=== PATIENT | female | born 1995 | race Hispanic/Latino ===

== ENCOUNTER 2022-02-21 17:46 | Emergency (ER) | payer MEDICAID ==
[~2022-02-21] VITALS: Ht 154.9 cm; Wt 102.5 kg
[~2022-02-21 17:46] MED LIST: ALBU1.252 IH; EPIN0.3P2 IM; LORA10CA PO
[2022-02-21] MEDS ORDERED: EPINEPHRINE PF 1MG (1:1,000) 1 MG/ML AMP ONE (18:21)
[2022-02-21] MEDS ORDERED: EPINEPHRINE PF 1MG (1:1,000) 1 MG/ML AMP SQ SCH (18:30)
[2022-02-21] MEDS ORDERED: 0.9%NACL 1000ML 1,000 ML IV ONE (18:30)
[2022-02-21] MEDS ORDERED: SOLU-MEDROL 125MG VIAL IVP ONE (18:30)
[2022-02-21] MEDS ORDERED: FAMOTIDINE 20MG VIAL IV ONE (18:30)
[2022-02-21] MEDS ORDERED: EPIN0.3P19 IJ (20:09)
[2022-02-21] MEDS ORDERED: DIPH25 PO (20:09)
[2022-02-21] MEDS ORDERED: PRED20TA3 PO (20:09)
[2022-02-21 20:42] VITALS: BP 102/55
== END 2022-02-21 20:50 | disposition home or self-care (01) ==
LOC: EDH 17:46
DX: T78.49XA Other allergy, initial encounter (principal); X58.XXXA Exposure to other specified factors, initial encounter; Z88.6 Allergy status to analgesic agent; Z79.52 Long term (current) use of systemic steroids
CPT/HCPCS: 99284; 96374; 96361; 96375; 96372; J7030; J2930; J0171; S0028; J3490

== ENCOUNTER 2023-11-17 15:18 | Emergency (ER) | payer MEDICAID, OTHER ==
[~2023-11-17] VITALS: Ht 154.9 cm; Wt 109.8 kg
[~2023-11-17 15:18] MED LIST changes: +DIPH-1242 PO; +EPIN0.3P19 IJ; +PRED20TA3 PO
[2023-11-17] MEDS: 0.9%NACL 1000ML 1,000 ML IV ONE (15:41)
[2023-11-17] MEDS: DiphenhydrAMINE HCL 50 MG/ML VIAL IV ONE (15:41)
[2023-11-17] MEDS: SOLU-MEDROL 125MG VIAL IVP ONE (15:41)
[2023-11-17 15:46] VITALS: BP 123/84; O2SAT 100
[2023-11-17 15:54] VITALS: PULSE 90; RESP 16
[2023-11-17] MEDS: ALBUTEROL 0.042% 1.25MG/3ML IH ONE (15:55)
[2023-11-17] MEDS: BUDESONIDE 0.5 MG/2 ML INH IH ONE (15:56)
[2023-11-17] MEDS: BUDESONIDE 0.5 MG/2 ML INH IH SCH (15:56)
[2023-11-17] MEDS ORDERED: ALBUHFA IH (16:31)
[2023-11-17] MEDS ORDERED: METH4TAB3 PO (16:31)
[2023-11-17] MEDS ORDERED: DIPH50 PO (16:31)
[2023-11-17] MEDS ORDERED: BUDESONIDE 0.5 MG/2 ML INH IH SCH (18:00)
== END 2023-11-17 16:53 | disposition home or self-care (01) ==
LOC: EDH 15:18
DX: T78.2XXA Anaphylactic shock, unspecified, initial encounter (principal); T78.3XXA Angioneurotic edema, initial encounter; J98.01 Acute bronchospasm; Z88.6 Allergy status to analgesic agent; Z91.010 Allergy to peanuts; Z79.899 Other long term (current) drug therapy
CPT/HCPCS: 99284; 96374; 96361; 94640; J1200; J7030; J2930

== ENCOUNTER 2024-10-06 15:53 | Emergency (ER) | payer BC ==
[~2024-10-06] VITALS: Ht 154.9 cm; Wt 112.5 kg
[~2024-10-06 15:53] MED LIST changes: +ALBUHFA IH; +DIPH50 PO; +METH4TAB3 PO
--- NOTE | 2024-10-06 16:48 | HMCIMG ---
ULTRASOUND ABDOMEN LIMITED INDICATION: Right upper abdominal pain COMPARISON: None FINDINGS: The liver is normal in size and increased in echogenicity; no focal lesion demonstrated. Main portal vein is patent, and normal direction of vascular flow demonstrated. The common bile duct diameter measures 2.0 mm. No evidence for calculi, sludge or pericholecystic fluid. No sonographic Perez's sign elicited by the ultrasound hydraulic press operator. Wall thickness measures 2.0 mm. Visible portions of the pancreas appear normal. The right kidney measures 12.1 x 4.6 x 5.3 cm,and is normal in echogenicity, without evidence for hydronephrosis.No shadowing stones demonstrated. No free fluid demonstrated. IMPRESSION: Findings suggesting hepatic steatosis or other underlying hepatocellular disease process.
[2024-10-06 17:04] LABS: BASOPHILS # (AUTO) 0.04 K/uL (0.00-0.20); BASOPHILS % (AUTO) 0.4 % (0.0-5.0); EOSINOPHILS % (AUTO) 0.9 % (0.0-8.0); HEMATOCRIT 38.8 % (36-48); IMMATURE GRANULOCYTE ABSOLUTE 0.05 K/uL (0-1); LYMPHOCYTES # (AUTO) 2.5 K/uL (1.0-4.8); LYMPHOCYTES % (AUTO) 21.8 % (21.0-51.0); MEAN CORPUSCULAR HEMOGLOBIN 26.4 pg (27.0-33.0); MEAN CORPUSCULAR HGB CONC 32.5 g/dL (32.0-36.0); MEAN CORPUSCULAR VOLUME 81.3 fL (79-99); MONOCYTES # (AUTO) 0.5 K/uL (0.1-1.0); MONOCYTES % (AUTO) 3.9 % (3.0-13.0); NEUTROPHILS # (AUTO) 8.3 K/uL (1.8-7.7); NEUTROPHILS % (AUTO) 72.6 % (40.0-77.0); PLATELET COUNT (AUTO) 333 K/uL (130-400); RED BLOOD CELL COUNT(AUTO) 4.77 MIL/uL (4.00-5.50); RED CELL DISTRIBUTION WIDTH 13.6 % (11.0-15.5); WHITE BLOOD COUNT (AUTO) 11.4 K/uL (4.8-10.8)
[2024-10-06 17:24] LABS: CREATININE 0.8 mg/dL (0.5-1.0)
[2024-10-06 17:29] LABS: ALBUMIN 3.8 g/dL (3.5-5.0); BILIRUBIN,DIRECT 0.1 mg/dL (0.0-0.3); BILIRUBIN,TOTAL 0.5 mg/dL (0.2-1.0); TOTAL PROTEIN, SERUM 8.3 g/dL (6.0-8.3)
[2024-10-06 17:34] LABS: APPEARANCE,URINE CLEAR (CLEAR); BILIRUBIN,URINE NEGATIVE (NEGATIVE); COLOR,URINE YELLOW (YELLOW); GLUCOSE, URINE (UA) NEGATIVE (NEGATIVE); KETONES,URINE 10 mg/dL (NEGATIVE); LEUKOCYTE ESTERASE ,URINE NEGATIVE Leu/uL (NEGATIVE); NITRATE,URINE NEGATIVE (NEGATIVE); OCCULT BLOOD,URINE NEGATIVE (NEGATIVE); PROTEIN,URINE 20 mg/dL (NEGATIVE)
[2024-10-06] MEDS: ondanSETRON 4MG INJ IVP STA (17:37)
[2024-10-06] MEDS: 0.9%NACL 1000ML 1,000 ML IV STA (17:37)
[2024-10-06 17:38] LABS: ADD UA MICROSCOPIC YES
[2024-10-06] MEDS: morPHINE 2 MG SYG IVP STA (17:38)
[2024-10-06 17:40] LABS: BACTERIA,URINE RARE /HPF (None Seen); MUCUS,URINE MANY LPF (None Seen); SQUAMOUS EPITHELIAL CELL,UR FEW /HPF (0-2)
[2024-10-06] MEDS ORDERED: ONDA-243 PO (18:42)
[2024-10-06] MEDS ORDERED: FAMO-136 PO (18:42)
--- NOTE | 2024-10-06 18:45 | ERN ---
ED Note History of Present Illness Stated Complaint: ABD PAIN Chief Complaint: Abdominal Pain Time Seen by MD: 15:57 Time Seen by Midlevel: 16:00 Dictation: 28-year-old with no past medical history coming in with complaints of epigastric pain for one week, worsening when she has a meal, patient states she has had also some emesis today times three, nonbloody and decreased appetite. LMP 09/18/2024. Denies any fever, diarrhea, chest pain or chest discomfort. Allergies: Coded Allergies: aspirin (Unverified Allergy, Unknown, 01/06/17) peanut (Unverified Allergy, Unknown, 01/06/17) Home Meds Active Scripts Diphenhydramine HCl (Benadryl) 50 Mg Cap, 50 MG PO Q6H for itching/rash, #20 CAP 0 Refills Prov:DEN CARLSON NP 11/17/23 Methylprednisolone (Medrol) 4 Mg Tab.ds.pk, 4 MG PO AD, #1 UNIT Prov:DEN CARLSON NP 11/17/23 Albuterol Sulfate (Ventolin Hfa/Proventil Hfa/Proair Hfa) 90 Mcg Puff, 2 PUFF IH Q4H for WHEEZING, #1 INHALER 0 Refills Prov:DEN CARLSON NP 11/17/23 Epinephrine (Epinephrine) 0.3 Mg/0.3 Ml Auto.injct, 0.3 MG IJ ONCE, #2 CARTRIDGE Prov:KANNAN CANTOR 02/21/22 Diphenhydramine HCl (Benadryl) 25 Mg Cap, 25 MG PO Q6HPRN PRN for ITCHING, #30 CAP Prov:KANNAN CANTOR 02/21/22 Prednisone (Prednisone) 20 Mg Tablet, 1 TAB PO AD for 6 Days, #14 TAB 0 Refills TAKE 1 TAB BY MOUTH THREE TIMES PER DAY X3 DAYS, THEN TAKE 1 TAB BY MOUTH TWICE A DAY X2 DAYS, THEN TAKE 1 TAB BY MOUTH ONCE A DAY X1 DAY. Prov:KANNAN CANTOR 02/21/22 Epinephrine (Epipen) 0.3 Mg/0.3 Ml Auto.injct, 0.3 MG IM as needed, #3 CARTRIDGE Prov:MOHSEN HUMMEL MD 01/07/17 Reported Medications Albuterol Sulfate (Albuterol Sulfate) 1.25 Mg/3 Ml Vial.neb, 1.25 MG IH BID PRN for SHORTNESS OF BREATH, INH 01/06/17 Loratadine (Claritin) 10 Mg Capsule, 10 MG PO AM, CAP 01/06/17 Past Medical History Past Medical History: No Pertinent History, Other Surgical History: None History: Not Applicable Review of System Dictation Constitutional: Negative for fever,chills, and weight loss Eyes: Negative for injury, pain,redness, and discharge ENT: Negative for injury,pain or swelling Cardiovascular: Negative for chest pain, palpitations, and edema Respiratory: Negative for shortness of breath, cough, and wheezing, Abdomen/GI: Epigastric pain is with nausea and vomiting no diarrhea, and no constipation Back: Negative for injury and pain : Negative for injury, bleeding and discharge MS/Extremity: Negative for injury and deformity Skin: Negative for rash, and discoloration Neuro: Negative for headache, weakness, numbness, tingling, and seizure Psych: Negative for suicide ideation, homicidal ideation, and hallucinations Review of Systems: was completed Initial Vital Sign VS Vital Signs Date Time Temp Pulse Resp B/P (MAP) Pulse Ox O2 Delivery O2 Flow Rate FiO2 10/06/24 15:56 99.5 113 18 164/87 95 Room Air 10/06/24 17:42 0 21 Physical Exam Dictation General: awake, alert, NAD Head/Face: Normocephalic, atraumatic Eyes: PERRL, EOMI, vision at baseline ENT: oral cavity clear, TMs clear, no signs of infection Neck: Trachea midline, supple, no nuchal rigidity Cardiovascular: RRR, normal S1/S2, No MRGs, no JVD Respiratory: CTAB, no respiratory distress, No rales or wheezes Abdomen: Soft, non-tender, non-distended, normal bowel sounds, no guarding or rebound. Skin: Warm, dry, normal turgor, no rash MS/Extremity: Pulses equal, no cyanosis, neurovascular intact, FROM Neuro: COAx4, GCS 15, strength 5/5, CN 2-12 intact, normal cerebellar exam, normal gait, Psych: Normal behavior, mood, and affect normal Results (Laboratory/Radiology) Laboratory/Radiology Laboratory Tests Test 10/06/24 16:59 10/06/24 17:09 White Blood Count 11.4 K/uL (4.8-10.8) H Red Blood Count 4.77 MIL/uL (4.00-5.50) Hemoglobin 12.6 g/dL (12.0-16.0) Hematocrit 38.8 % (36-48) Mean Corpuscular Volume 81.3 fL (79-99) Mean Corpuscular Hemoglobin 26.4 pg (27.0-33.0) L Mean Corpuscular Hemoglobin Concent 32.5 g/dL (32.0-36.0) Red Cell Distribution Width 13.6 % (11.0-15.5) Platelet Count 333 K/uL (130-400) Mean Platelet Volume 10.0 fL (7.5-10.5) Immature Granulocyte % (Auto) 0.4 % (0-1) Neutrophils (%) (Auto) 72.6 % (40.0-77.0) Lymphocytes (%) (Auto) 21.8 % (21.0-51.0) Monocytes (%) (Auto) 3.9 % (3.0-13.0) Eosinophils (%) (Auto) 0.9 % (0.0-8.0) Basophils (%) (Auto) 0.4 % (0.0-5.0) Neutrophils # (Auto) 8.3 K/uL (1.8-7.7) H Lymphocytes # (Auto) 2.5 K/uL (1.0-4.8) Monocytes # (Auto) 0.5 K/uL (0.1-1.0) Eosinophils # (Auto) 0.10 K/uL (0.00-0.70) Basophils # (Auto) 0.04 K/uL (0.00-0.20) Absolute Immature Granulocyte (auto 0.05 K/uL (0-1) Nucleated Red Blood Cells 0.0 % (0.0-0.19) Sodium Level 138 mmol/L (136-145) Potassium Level 4.0 mmol/L (3.5-5.1) Chloride Level 101 mmol/L (101-111) Carbon Dioxide Level 31 mmol/L (21-32) Blood Urea Nitrogen 11 mg/dL (7-18) Creatinine 0.8 mg/dL (0.5-1.0) Glomerular Filtration Rate Calc 102 mL/min (>90) Random Glucose 127 mg/dL (70-105) H Total Calcium 9.2 mg/dL (8.5-10.1) Total Bilirubin 0.5 mg/dL (0.2-1.0) Direct Bilirubin 0.1 mg/dL (0.0-0.3) Aspartate Amino Transf (AST/SGOT) 25 U/L (10-37) Alanine Aminotransferase (ALT/SGPT) 45 U/L (12-78) Alkaline Phosphatase 86 U/L (50-136) Total Protein 8.3 g/dL (6.0-8.3) Albumin 3.8 g/dL (3.5-5.0) Lipase 28 U/L (16-77) Urine Color YELLOW (YELLOW) Urine Appearance CLEAR (CLEAR) Urine pH 6.0 (5.0-8.0) Urine Specific Pierce 1.031 (1.001-1.031) Urine Protein 20 mg/dL (NEGATIVE) H Urine Glucose (UA) NEGATIVE mg/dL (NEGATIVE) Urine Ketones 10 mg/dL (NEGATIVE) H Urine Occult Blood NEGATIVE (NEGATIVE) Urine Nitrate NEGATIVE (NEGATIVE) Urine Bilirubin NEGATIVE mg/dL (NEGATIVE) Urine Urobilinogen 2.0 mg/dL (0.2-1.0) H Urine Leukocyte Esterase NEGATIVE [place]/uL Urine RBC 2-5 /HPF (0-1) H Urine WBC 2-5 /HPF (0-1) H Urine Squamous Epithelial Cells FEW /HPF (0-2) Urine Bacteria RARE /HPF (None Seen) Urine Hyaline Casts 2-5 /LPF (0-1 /LPF) H Labs Reviewed?: Yes Ultrasound Comment: [place] [address] IMAGING REPORT Signed PATIENT: PRATIK JEFFERS MR#: [id number] : 1995 SEX: F AGE: 28 LOCATION: [facility] ORDER 12 STATUS: REG REPORT#: [id number] SERVICE 161 REASON: RUQ pain, n/v ORDERING PHYSICIAN: JODI OTTO NP PROCEDURE: ABDRUQLTD - US ABDOMINAL RUQ\LTD ULTRASOUND ABDOMEN LIMITED INDICATION: Right upper abdominal pain COMPARISON: None FINDINGS: The liver is normal in size and increased in echogenicity; no focal lesion demonstrated. Main portal vein is patent, and normal direction of vascular flow demonstrated. The common bile duct diameter measures 2.0 mm. No evidence for calculi, sludge or pericholecystic fluid. No sonographic Perez's sign elicited by the ultrasound grapple yarder operator. Wall thickness measures 2.0 mm. Visible portions of the pancreas appear normal. The right kidney measures 12.1 x 4.6 x 5.3 cm,and is normal in echogenicity, without evidence for hydronephrosis.No shadowing stones demonstrated. No free fluid demonstrated. IMPRESSION: Findings suggesting hepatic steatosis or other underlying hepatocellular disease process. DICTATED BY: MARI ROWLEY MD DATE: 10/06/241644 ELECTRONICALLY SIGNED BY: MARI ROWLEY MD DATE: 10/06/241647 ED Course ED Course Orders Procedure Category Date Status Time Cbc With Differential LAB 10/06/24 Complete 16:11 Basic Metabolic Panel LAB 10/06/24 Complete 16:11 Lipase LAB 10/06/24 Complete 16:11 Hepatic Function Panel LAB 10/06/24 Complete 16:11 Us Abdominal Ruq\Ltd US 10/06/24 Resulted 16:11 Urinalysis Profile LAB 10/06/24 Complete 16:11 Ondansetron 4mg Inj PHA 10/06/24 Complete (Zofran 4mg Inj) 16:11 Morphine 2mg Syg PHA 10/06/24 Complete (Morphine 2mg Syg) 16:11 0.9%Nacl 1000ml (Ns PHA 10/06/24 Complete 1000ml) 16:11 Current Medications Medications (Trade) Dose Ordered Sig/Alpa Route PRN Reason Start Time Stop Time Status Last Admin Dose Admin Morphine Sulfate (morPHINE 2MG SYG) 2 mg ONCE STAT IVP 10/06/24 16:11 10/06/24 16:13 DC 10/06/24 17:38 Ondansetron HCl (zoFRAN 4MG INJ) 4 mg ONCE STAT IVP 10/06/24 16:11 10/06/24 16:13 DC 10/06/24 17:37 Sodium Chloride 1,000 ml @ 1,000 mls/hr Q1H STAT IV 10/06/24 16:11 10/06/24 17:10 DC 10/06/24 17:37 Vital Signs Date Time Temp Pulse Resp B/P (MAP) Pulse Ox O2 Delivery O2 Flow Rate FiO2 10/06/24 17:42 99.1 102 16 160/80 98 Room Air* 0 21 10/06/24 15:56 99.5 113 18 164/87 95 Room Air Medical Decision Making MDM MDM: 28-year-old with no past medical history coming in with complaints of epigastric pain for one week, worsening when she has a meal, patient states she has had also some emesis today times three, nonbloody and decreased appetite. LMP 09/18/2024. Denies any fever, diarrhea, chest pain or chest discomfort. CBC shows leukocytosis of 11.4, no anemia, no thrombocytopenia. Chemistry unremarkable. No transaminitis, lipase and T bili within normal range. UA shows no evidence of urinary tract infection. Ultrasound of the right upper quadrant shows no acute findings. Discussed findings with the patient. Educated patient this could be gastroenteritis, gastritis, or PUD. Educated she needs to follow up with PCP and or with web applications architect for further evaluation. The meantime patient is to maintain a liquid diet and advance as tolerated. We will prescribe antiemetics and antacids. Differential diagnosis: Cholelithiasis, gastritis, gastroenteritis Rationale: Tests considered and ordered secondary to shared decision making include: Previous outside records reviewed: Old ER visits. Risk of complication and/or morbidity or mortality of patient management: None Medications-Per medication reconciliation Need for hospitalization: Patient does not meet criteria for hospitalization. Need for emergency major/minor surgery: No There are no social concerns with this patient. Prescription drug management Prescriptions will include symptomatic care Patient's prior external medical records from other ER visits were reviewed by me as indicated. Prior testing and results from previous visits were reviewed. Prior tests were taken into account with medical decision making and resource utilization, independent historian/historians were used to obtain complete medical history. I independently interpreted the test that were performed, results were reviewed by me and considered findings on radiology if ordered. Medical management and examination interpretation discussions were had by me with other qualified healthcare professionals as indicated for the patient's care. DX & DISP Disposition: Discharge Departure Impression: Primary Impression: Gastroenteritis Condition: Stable Scripts Ondansetron (Ondansetron Odt) 4 Mg Tab.rapdis 4 MG PO Q6HPRN PRN for nausea, #16 TAB 0 Refills Prov: JODI OTTO NP 10/06/24 Famotidine (Pepcid) 20 Mg Tablet 1 TAB PO BID for 30 Days, #60 TAB 0 Refills Prov: JODI OTTO NP 10/06/24 Referrals: KEILA SMITH (PCP) Time of Disposition: 18:41 I have reviewed the case, and I agree with, Diagnosis and Plan JODI OTTO NP Oct 06, 2024 18:45
[2024-10-06 18:53] VITALS: BP 160/82; PULSE 101; RESP 18; TEMP 99.2; O2SAT 98
== END 2024-10-06 19:03 | disposition home or self-care (01) ==
LOC: EDH 15:53
DX: K52.9 Noninfective gastroenteritis and colitis, unspecified (principal); Z88.6 Allergy status to analgesic agent; Z79.899 Other long term (current) drug therapy
CPT/HCPCS: 99284; 96374; 76705; 96361; 96375; 80076; 80048; 83690; 85025; 81001; 36415; J2270; J7030; J2405; 99285